=== PATIENT | male | born 1950 | race Caucasian/White ===

== ENCOUNTER 2019-01-15 07:41 | Day surgery (SDC) | payer OTHER, BC ==
[2019-01-09 15:20] VITALS: BMI 27.8
[2019-01-15 09:13] VITALS: TEMP 98.2
[2019-01-15 10:06] VITALS: BP 122/72; PULSE 66
--- NOTE | 2019-01-18 20:47 | PATH ---
Surgical Pathology Report Patient Name: CATHIE GRAFF [facility]. Rec. #: [id number] /Age/Gender: 1950 (Age: 68) / M Account: [id number] Location: [facility] Taken: 01/15/2019 Received: 01/15/2019 Reported: 01/18/2019 Physicians: Reno Franco M.D. Specimen(s) Received A: SECOND PORTION DUODENUM B: ANTRUM Clinical History Reflux, gastritis, duodenitis Final Diagnosis A. SECOND PORTION DUODENUM, BIOPSY: DUODENUM MUCOSA WITH MODERATELY ACUTE AND CHRONIC DUODENITIS. B. GASTRIC ANTRUM, BIOPSY: GASTRIC MUCOSA WITH CHRONIC GASTRITIS. REACTIVE GASTROPATHY PRESENT. IMMUNOSTAIN FOR H. PYLORI IS NEGATIVE. NEGATIVE FOR INTESTINAL METAPLASIA. Electronically Signed Wendy Weaver M.D. Gross Description A. Received in formalin, labeled "second portion duodenum" are 2 [place], irregular portions of soft tissue measuring 0.4 cm. in greatest dimension. The specimens are submitted in toto in one cassette. B. Received in formalin, labeled "gastric antrum" are 2 [place], irregular portions of soft tissue measuring 0.4 cm. in greatest dimension. The specimens are submitted in toto in one cassette. __ FREDRICK/01/16/2019 joy/01/16/2019
== END 2019-01-15 10:07 | disposition home or self-care (01) ==
LOC: FASU-ENDO 07:41
PROVIDERS: ATTEND Internal Medicine Gastroenterology
PROC: 0DB68ZX Excision of Stomach, Via Natural or Artificial Opening Endoscopic, Diagnostic (ICD-10-PCS; 2019-01-15)
PROC: 0DB98ZX Excision of Duodenum, Via Natural or Artificial Opening Endoscopic, Diagnostic (ICD-10-PCS; principal; 2019-01-15 08:49)
DX: K26.9 Duodenal ulcer, unspecified as acute or chronic, without hemorrhage or perforation (principal); K29.80 Duodenitis without bleeding; K29.50 Unspecified chronic gastritis without bleeding; K31.9 Disease of stomach and duodenum, unspecified; R12 Heartburn
CPT/HCPCS: 88305-TC; 88342-TC

== ENCOUNTER 2022-07-12 07:43 | Day surgery (SDC) | payer OTHER, BC ==
[2022-07-11 10:05] VITALS: BMI 29.2
[2022-07-12] MEDS ORDERED: PROPOFOL 80 ML ONE (07:57)
[2022-07-12 09:20] VITALS: BP 116/64; PULSE 72; RESP 20; TEMP 97.8
== END 2022-07-12 09:21 | disposition home or self-care (01) ==
LOC: FASU-ENDO 07:43
PROVIDERS: ATTEND Internal Medicine Gastroenterology
PROC: 0DJD8ZZ Inspection of Lower Intestinal Tract, Via Natural or Artificial Opening Endoscopic (ICD-10-PCS; principal; 2022-07-12 08:17)
DX: Z12.11 Encounter for screening for malignant neoplasm of colon (principal); K57.31 Diverticulosis of large intestine without perforation or abscess with bleeding; Z86.010 Personal history of colon polyps; Z80.0 Family history of malignant neoplasm of digestive organs; Z83.71 Family history of colonic polyps